=== PATIENT | female | born 1980 | race Caucasian/White ===

== ENCOUNTER 2022-06-07 10:00 | Outpatient (CLI) | payer BC | END 2022-06-07 10:01 | disposition home or self-care (01) | LOC: NAV RAD 10:00 | PROVIDERS: ATTEND Family Medicine | DX: S46.002A Unspecified injury of muscle(s) and tendon(s) of the rotator cuff of left shoulder, initial encounter (principal); M19.012 Primary osteoarthritis, left shoulder ==